=== PATIENT | male | born 1960 | race Caucasian/White ===

== ENCOUNTER 2017-06-07 08:18 | Emergency (ER) | payer BC ==
[2017-06-07 08:40] VITALS: BP 145/94
--- NOTE | 2017-06-07 08:55 | UC ---
Dental HPI - HPI Summary HPI Summary: Began with lip swelling on the right yesterday with a sore in the mouth and a little sore throat. Swelling is worse today with some on the left side now. Feels a little warm. Denies any tooth pain. - History of Current Complaint Chief Complaint: Jones Stated Complaint: FACIAL SWELLING Time Seen by Provider: 06/07/17 08:43 Hx Obtained From: Patient Onset/Duration: Sudden Onset, Lasting Days - 2, Worse Since - this morning. Severity: Moderate Pain Intensity: 0 Aggravating Factor(s): Nothing Alleviating Factor(s): Nothing Related History: Swelling - Allergies/Home Medications Allergies/Adverse Reactions: Allergies Allergy/AdvReac Type Severity Reaction Status Date / Time No Known Allergies Allergy Verified 06/07/17 08:41 Home Medications: Home Medications Benadryl 20 Ml 1 dose PO ONCE PRN 06/07/17 [History] PMH/Surg Hx/FS Hx/Imm Hx Previously Healthy: Yes - Surgical History Surgical History: None - Family History Known Family History: Positive: Cardiac Disease - Social History Occupation: Retired Lives: With Family Alcohol Use: Occasionally Substance Use Type: None Smoking Status (MU): Former Smoker Review of Systems Respiratory: Cough Is Patient Immunocompromised?: No All Other Systems Reviewed And Are Negative: Yes Physical Exam Triage Information Reviewed: Yes Appearance: Well-Appearing, No Pain Distress, Well-Nourished Vital Signs: Initial Vital Signs Temp 98.3 F 06/07/17 08:30 Pulse 94 06/07/17 08:30 Resp 20 06/07/17 08:30 BP 145/94 06/07/17 08:30 Pulse Ox 98 06/07/17 08:30 Eyes: Positive: Conjunctiva Inflamed - OU ENT: Positive: Pharynx normal, TMs normal, Other - Bilateral parotid swelling. Dental Exam: Normal - with some missing teeth Neck exam: Normal Respiratory Exam: Normal Cardiovascular Exam: Normal Musculoskeletal Exam: Normal Neurological Exam: Normal Psychological Exam: Normal Skin Exam: Normal Dental Complaint Course/Dx - Differential Dx/Diagnosis Differential Diagnosis/Dx: Dental Abscess, Odontogenic Pain, Peridontic Disease , Pharyngitis Provider Diagnoses: Sialadenitis Discharge - Sign-Out/Discharge Documenting (check all that apply): Discharge - Discharge Plan Condition: Stable Disposition: HOME Prescriptions: Amoxicillin/Clavulanate TAB* [Augmentin TAB 875*] 875 mg PO BID #20 tab predniSONE TAB* [Deltasone TAB*] 20 mg PO DAILY #18 tab Patient Education Materials: Sialoadenitis (ED), Amoxicillin/Clavulanate Potassium (By mouth), Prednisone (By mouth) Referrals: Non Staff,Doctor [Primary Care Provider] - Additional Instructions: If you get diarrhea with the augmentin, take one imodium with each dose of antibiotics. - Billing Disposition and Condition Condition: STABLE Disposition: HOME
== END 2017-06-07 09:19 | disposition home or self-care (01) ==
LOC: UCCORT 08:18
DX: K11.20 Sialoadenitis, unspecified (principal); Z87.891 Personal history of nicotine dependence
CPT/HCPCS: 99202; G0463